=== PATIENT | male | born 1950 | race Caucasian/White ===

== ENCOUNTER 2023-11-20 10:27 | Emergency (ER) | payer MEDICARE, BC ==
[~2023-11-20] VITALS: Ht 177.8 cm; Wt 104.5 kg
[~2023-11-20 10:27] MED LIST: ATENOLOL50 MG PO; CEPHALEXIN500 M1 PO; OSTEO-BI-FLEX 21 TAB PO; PRINZIDE 25 MG-1 TAB PO; TENORMIN 5050 MG/TAB PO; TOPROL XL100 MG PO; ULTRAM 50MG TAB50 MG PO
[2023-11-20 10:33] VITALS: TEMP 97.9
[2023-11-20 11:30] VITALS: BP 101/60; PULSE 90
== END 2023-11-20 11:30 | disposition home or self-care (01) ==
LOC: COL.ER 10:27
DX: R22.42 Localized swelling, mass and lump, left lower limb (principal)